=== PATIENT | female | born 1960 | race Caucasian/White ===

== ENCOUNTER 2023-06-06 10:59 | Emergency (ER) | payer BC, SELFPAY ==
[2023-06-06 11:05] VITALS: BP 133/84; PULSE 68; RESP 16; TEMP 36.6; O2SAT 99; BMI 56.8
--- NOTE | 2023-06-06 11:25 | CT_ITS ---
[address] [address] Patient Name: YAJAIRA CONTEH MRN: [id number] date: 1960 Sex: F Assigned Patient Location: ER Current Patient Location: ER Accession/Order Number: [id number] Exam Date: 06/06/2023 12:24 Report Date: 06/06/2023 12:51 At the request of: MANUEL GOODSON Procedure: CT abdomen pelvis w con EXAMINATION: CT abdomen pelvis w con HISTORY: left lower abdominal pain, obstipation COMPARISON: No relevant comparison available. TECHNIQUE: CT images were created with IV contrast. Axial, Coronal, and Sagittal images. Dose reduction techniques were achieved by using automated exposure control and/or adjustment of mA and/or kV according to patient size and/or use of iterative reconstruction technique. FINDINGS: LUNG BASES: No visible pulmonary or pleural disease. LIVER: Diffuse hypoattenuation consistent with hepatic steatosis BILIARY: No visible dilatation or calcification. PANCREAS: No lesion, fluid collection, ductal dilatation, or atrophy. SPLEEN: No enlargement or focal lesion. ADRENALS: No mass or enlargement. KIDNEYS: No mass, obstruction, or calcification. BOWEL/MESENTERY: Moderate concentric wall thickening of the mid sigmoid colon measuring up to 1.2 cm. Underlying diverticulosis. Stranding of adjacent mesenteric fat with a mixed soft tissue and fluid collection measuring 2.4 x 1.5 cm axial image 103. Nonobstructive bowel gas pattern. AORTA/VASCULAR: No aortic aneurysm. Mild atherosclerosis RETROPERITONEUM: No mass or adenopathy. LYMPH NODES: No adenopathy. URINARY BLADDER: No visible focal wall thickening, lesion, or calculus. PELVIC ORGANS: Recommend. Small amount of free pelvic fluid ABDOMINAL WALL: No mass or hernia. BONES: No bony lesion or fracture. OTHER: 1.3 cm area of fluid attenuation adjacent to the left aorta axial image 33, nonspecific IMPRESSION: Sigmoid colon diverticulitis with suspected early abscess formation measuring 2.4 x 1.5 cm Electronically authenticated by: GIOVANNI SHELDON Date: 06/06/2023 12:51
[2023-06-06 11:57] LABS: Basophils Absolute Auto 0.1 10^3/uL (0.0-0.1); Basophils Percent Auto 0.4 % (0.2-2.0); Eosinophils Absolute Auto 0.1 10^3/uL (0.0-0.7); Eosinophils Percent Auto 0.9 % (0.9-7.0); Hematocrit 39.7 % (36.0-48.0); Hemoglobin 12.8 g/dL (12.0-16.0); Immature Granulocytes Abs Auto 0.03 10^3/uL (0.00-0.03); Immature Granulocytes Pct Auto 0.3 % (0.0-0.5); Lymphocytes Absolute Auto 1.7 10^3/uL (1.2-3.8); Lymphocytes Percent Auto 14.6 % (20.5-60.0); Mean Corpuscular HGB Conc 32.2 g/dL (29.9-35.2); Mean Corpuscular Hemoglobin 31.8 pg (26.7-34.0); Mean Corpuscular Volume 98.8 fL (81.0-99.0); Monocytes Absolute Auto 1.1 10^3/uL (0.3-0.8); Monocytes Percent Auto 9.1 % (1.7-12.0); Neutrophils Absolute Auto 8.6 10^3/uL (1.4-6.5); Neutrophils Percent Auto 74.7 % (43.0-75.0); Platelet Count 188 10^3/uL (150-450); Red Blood Count 4.02 10^6/uL (4.20-5.40); Red Cell Distribution Width 12.2 % (11.0-15.0); White Blood Count 11.5 10^3/uL (4.0-11.0)
[2023-06-06] MEDS: 0.9 % SODIUM CHLORIDE 1,000 ML 999 ML IV (12:00)
[2023-06-06] MEDS: ONDANSETRON PF 4 MG/2 ML VIAL IV (12:01)
[2023-06-06] MEDS: HYOSCYAMINE SULFATE 0.125 MG TAB.SUBL SL (12:01)
--- NOTE | 2023-06-06 12:12 | ED_ITS ---
HPI - Abdominal Pain General Chief Complaint: Abdominal Pain Stated Complaint: DIVERTICULITIS FLARE UP Time Seen by Provider: 06/06/23 11:11 Source: patient Mode of arrival: walk-in Limitations: no limitations History of Present Illness HPI narrative: patient concerned that she is experiencing diverticulitis. Pain across the lower abdomen and left abdomen that began yesterday. She is having difficulty passing more than a small amount of stool - she does not want to push to go because of the pain. No fever or chills. No vomiting or diarrhea. Pain is non-radiating. no urinary symptoms. Related Data Home Medications Medication Instructions Recorded Confirmed Saccharomyces boulardii 250 mg 250 mg PO DAILY 06/06/23 06/06/23 capsule (Daily Probiotic (S. boulardii)) ascorbate calcium (vitamin C) 500 500 mg PO DAILY 06/06/23 06/06/23 mg tablet calcium phosphate,dibasic 77 tab PO 06/06/23 mg-vitamin D3 400 unit tablet valacyclovir 500 mg tablet mg 06/06/23 Previous Rx's Medication Instructions Recorded ciprofloxacin HCl 500 mg tablet 500 mg PO BID #14 tabs 06/06/23 (Cipro) hyoscyamine sulfate 0.125 mg 0.125 mg PO Q6H PRN abdominal pain 06/06/23 sublingual tablet (Levsin/SL) #20 tabs metronidazole 500 mg tablet 500 mg PO Q8H 7 days #21 tabs 06/06/23 ondansetron 4 mg disintegrating 4 mg PO Q6H PRN nausea and 06/06/23 tablet vomiting #20 tabs Allergies Allergy/AdvReac Type Severity Reaction Status Date / Time Penicillins AdvReac Intermediate Verified 06/06/23 11:09 Sulfa (Sulfonamide AdvReac Intermediate Verified 06/06/23 11:09 Antibiotics) PFSH PFS Social History Smoking status: Former smoker Exam Narrative Exam Narrative: Nurses notes and vital signs reviewed and patient is not hypoxic. afebrile General: Well-appearing and in no apparent distress. Skin: Warm, dry, no pallor noted. No rash to flank or abdomen. Head: Normocephalic, atraumatic. Eye: Pupils are equal, round and EOMI. No scleral icterus. Ears, Nose, Mouth, and Throat: Oral mucosa is moist Cardiovascular: Regular Rate and Rhythm without murmur, gallop or rub. Respiratory: No accessory muscle use or respiratory distress. Lungs are clear to auscultation, no wheezing, rales or rhonchi Back: No CVA tenderness Musculoskeletal: normal ROM, no lower extremity edema/swelling GI: Abdomen is soft, non-distended. Normal bowel sounds. Diffusely tender along LLQ, suprapubic and LUQ areas on palpation. No rebound, guarding, or rigidity noted. Neurological: A&O x4. No cranial nerve dysfunction observed. No truncal ataxia. Moves all extremities. Sensation intact. Psychiatric: Cooperative and interactive. Normal mood and affect. Constitutional Vital Signs - 24 hr 06/06/23 11:05 Temperature 97.9 F Pulse Rate [Monitor] 68 Respiratory Rate 16 Blood Pressure [Left Arm] 133/84 H Pulse Oximetry 99 Oxygen Delivery Method Room Air Course Vital Signs Vital signs: Vital Signs Temperature 97.9 F 06/06/23 11:05 Pulse Rate 68 06/06/23 11:05 Respiratory Rate 16 06/06/23 11:05 Blood Pressure 133/84 H 06/06/23 11:05 Pulse Oximetry 99 06/06/23 11:05 Oxygen Delivery Method Room Air 06/06/23 11:05 Temperature 97.9 F 06/06/23 11:05 Pulse Rate 68 06/06/23 11:05 Respiratory Rate 16 06/06/23 11:05 Blood Pressure 133/84 H 06/06/23 11:05 Pulse Oximetry 99 06/06/23 11:05 Oxygen Delivery Method Room Air 06/06/23 11:05 MDM - Abdominal Pain MDM Narrative Medical decision making narrative: peripheral IV established and blood drawn and sent for testing. Patient was ordered to receive normal saline IV fluid, IV Zofran and oral sulfa Levsin. CT scanning of the abdomen pelvis was obtained. the radiologist identified sigmoid colonic diverticulitis with suspected early abscess formation measuring 2.4 x 1.5 cm. WBC slightly elevated at 11.5k. CMP was unremarkable. Urinalysis did not identify acute urinary tract infection. Call placed to the on-call general surgeon. Dr. Bender and I discussed this case including the CT report. He recommended that she receive Cipro and Flagyl and he will see her in the office next week for follow up. ED return if she worsens. She will also get zofran and Levsin Lab Data Attestation: I reviewed the patient's lab results. Labs: Lab Results 06/06/23 06/06/23 Range/Units 11:44 12:40 WBC 11.5 H (4.0-11.0) 10^3/uL RBC 4.02 L (4.20-5.40) 10^6/uL Hgb 12.8 (12.0-16.0) g/dL Hct 39.7 (36.0-48.0) % MCV 98.8 (81.0-99.0) fL MCH 31.8 (26.7-34.0) pg MCHC 32.2 (29.9-35.2) g/dL RDW 12.2 (11.0-15.0) % Plt Count 188 (150-450) 10^3/uL MPV 12.0 (9.5-13.5) fL Neut % (Auto) 74.7 (43.0-75.0) % Lymph % (Auto) 14.6 L (20.5-60.0) % [place] % (Auto) 9.1 (1.7-12.0) % Eos % (Auto) 0.9 (0.9-7.0) % Baso % (Auto) 0.4 (0.2-2.0) % Neut # (Auto) 8.6 H (1.4-6.5) 10^3/uL Lymph # (Auto) 1.7 (1.2-3.8) 10^3/uL [place] # (Auto) 1.1 H (0.3-0.8) 10^3/uL Eos # (Auto) 0.1 (0.0-0.7) 10^3/uL Baso # (Auto) 0.1 (0.0-0.1) 10^3/uL Abs Immat Gran (auto) 0.03 (0.00-0.03) 10^3/uL Imm/Tot Granulo (auto) 0.3 (0.0-0.5) % Sodium 141 (136-145) mmol/L Potassium 3.8 (3.5-5.1) mmol/L Chloride 107 (98-107) mmol/L Carbon Dioxide 27.0 (21.0-32.0) mmol/L Anion Gap 10.8 BUN 8.0 (7.0-18.0) mg/dL Creatinine 0.74 (0.55-1.02) mg/dL Est GFR ( Amer) >60 (>=60) Est GFR (Non-Af Amer) >60 (>=60) BUN/Creatinine Ratio 10.8 Glucose 97 (74-106) mg/dL Calcium 8.9 (8.5-10.1) mg/dL Total Bilirubin 0.6 (0.2-1.0) mg/dL AST 14 L (15-37) U/L ALT <6 L (14-59) U/L Alkaline Phosphatase 89 (46-116) U/L Total Protein 6.7 (6.4-8.2) g/dL Albumin 3.5 (3.4-5.0) g/dL Globulin 3.2 g/dL Albumin/Globulin Ratio 1.1 Urine Color Lt. yellow (YELLOW) Urine Clarity Clear (CLEAR) Urine pH 6.5 (5.0-9.0) Ur Specific [place] <=1.005 A (1.005-1.025) Urine Protein Negative (NEG/TRACE) mg/dL Urine Glucose (UA) Negative (NEGATIVE) mg/dL Urine Ketones Negative (NEGATIVE) mg/dL Urine Occult Blood Negative (NEGATIVE) Urine Nitrite Negative (NEGATIVE) Urine Bilirubin Negative (NEGATIVE) Urine Urobilinogen 0.2 (0.2-1.0) EU/dL Ur Leukocyte Esterase Small A (NEGATIVE) Urine RBC None seen (0-2) #/HPF Urine WBC 0-2 A (NONE SEEN) #/HPF Ur Squamous Epith Cells Rare (NONE/RARE) #/LPF Urine Crystals None seen (None Seen) #/HPF Urine Bacteria None seen (NONE SEEN) #/HPF Urine Casts None seen (NONE SEEN) #/LPF Urine Mucus None seen (NONE SEEN) Ur Culture Indicated? No Imaging Data ct abd/pelvis: Radiologist's impression: Patient Name: YAJAIRA CONTEH MRN: [id number] date: 1960 Sex: F Assigned Patient Location: ER Current Patient Location: ER Accession/Order Number: [id number] Exam Date: 06/06/2023 12:24 Report Date: 06/06/2023 12:51 At the request of: MANUEL GOODSON Procedure: CT abdomen pelvis w con EXAMINATION: CT abdomen pelvis w con HISTORY: left lower abdominal pain, obstipation COMPARISON: No relevant comparison available. TECHNIQUE: CT images were created with IV contrast. Axial, Coronal, and Sagittal images. Dose reduction techniques were achieved by using automated exposure control and/or adjustment of mA and/or kV according to patient size and/or use of iterative reconstruction technique. FINDINGS: LUNG BASES: No visible pulmonary or pleural disease. LIVER: Diffuse hypoattenuation consistent with hepatic steatosis BILIARY: No visible dilatation or calcification. PANCREAS: No lesion, fluid collection, ductal dilatation, or atrophy. SPLEEN: No enlargement or focal lesion. ADRENALS: No mass or enlargement. KIDNEYS: No mass, obstruction, or calcification. BOWEL/MESENTERY: Moderate concentric wall thickening of the mid sigmoid colon measuring up to 1.2 cm. Underlying diverticulosis. Stranding of adjacent mesenteric fat with a mixed soft tissue and fluid collection measuring 2.4 x 1.5 cm axial image 103. Nonobstructive bowel gas pattern. AORTA/VASCULAR: No aortic aneurysm. Mild atherosclerosis RETROPERITONEUM: No mass or adenopathy. LYMPH NODES: No adenopathy. URINARY BLADDER: No visible focal wall thickening, lesion, or calculus. PELVIC ORGANS: Recommend. Small amount of free pelvic fluid ABDOMINAL WALL: No mass or hernia. BONES: No bony lesion or fracture. OTHER: 1.3 cm area of fluid attenuation adjacent to the left aorta axial image 33, nonspecific IMPRESSION: Sigmoid colon diverticulitis with suspected early abscess formation measuring 2.4 x 1.5 cm Electronically authenticated by: GIOVANNI SHELDON Date: 06/06/2023 12:51 Discharge Plan Discharge Chief Complaint: Abdominal Pain Clinical Impression: Diverticulitis Patient Disposition: Home, Self-Care Time of Disposition Decision: 13:24 Mode of Transportation: Private Vehicle Prescriptions / Home Meds: New ciprofloxacin HCl [Cipro] 500 mg tablet 500 mg PO BID Qty: 14 0RF metronidazole 500 mg tablet 500 mg PO Q8H 7 Days Qty: 21 0RF ondansetron 4 mg tablet,disintegrating 4 mg PO Q6H PRN (Reason: nausea and vomiting) Qty: 20 0RF hyoscyamine sulfate [Levsin/SL] 0.125 mg tablet, sublingual 0.125 mg PO Q6H PRN (Reason: abdominal pain) Qty: 20 0RF No Action valacyclovir 500 mg tablet calcium phos,dibas-vitamin D3 77-400 mg-unit tablet PO ascorbate calcium (vitamin C) 500 mg tablet 500 mg PO DAILY Saccharomyces boulardii [Daily Probiotic (S. boulardii)] 250 mg capsule 250 mg PO DAILY Instructions: Diverticulitis (ED) Additional Instructions: FOLLOW UP WITH GENERAL SURGEON DR BENDER [phone] Stand Alone Forms: Portal Instructions Referrals: MIGEL VALLADARES [Primary Care Provider] - 1 week Discharge Date/Time: 06/06/23 14:03
[2023-06-06 12:15] LABS: Alanine Aminotransferase <6 U/L (14-59); Albumin Globulin Ratio 1.1; Albumin Level 3.5 g/dL (3.4-5.0); Alkaline Phosphatase 89 U/L (46-116); Anion Gap 10.8; Aspartate Amino Transferase 14 U/L (15-37); BUN Creatinine Ratio 10.8; Bilirubin Total 0.6 mg/dL (0.2-1.0); Calcium 8.9 mg/dL (8.5-10.1); Chloride 107 mmol/L (98-107); Estimated GFR (African America >60 (>=60); Estimated GFR (Non-African Ame >60 (>=60); Globulin 3.2 g/dL; Glucose 97 mg/dL (74-106); Potassium 3.8 mmol/L (3.5-5.1); Sodium 141 mmol/L (136-145); Total Protein 6.7 g/dL (6.4-8.2)
[2023-06-06 12:47] LABS: Bilirubin Urine NEGATIVE (NEGATIVE); Blood Urine NEGATIVE (NEGATIVE); Clarity Urine CLEAR (CLEAR); Color Urine LT. YELLOW (YELLOW); Glucose Urine UA NEGATIVE (NEGATIVE); Ketones Urine NEGATIVE (NEGATIVE); Leukocyte Esterase Urine SMALL (NEGATIVE); Nitrite Urine NEGATIVE (NEGATIVE); Protein Urine NEGATIVE (NEG/TRACE); Specific Gravity Urine <=1.005 (1.005-1.025); Urobilinogen Urine 0.2 EU/dL (0.2-1.0); pH Urine 6.5 (5.0-9.0)
[2023-06-06 12:48] LABS: Urine Microscopic Indicated YES
[2023-06-06 12:53] LABS: Bacteria Urine NONE SEEN #/HPF (NONE SEEN); Cast Seen? NONE SEEN #/LPF (NONE SEEN); Crystals Seen? None Seen #/HPF (None Seen); Mucus Urine NONE SEEN (NONE SEEN); RBC Urine NONE SEEN #/HPF (0-2); Squamous Epithelial Cell Urine RARE #/LPF (NONE/RARE); WBC Urine 0-2 #/HPF (NONE SEEN)
[2023-06-06 12:54] LABS: Urine Culture Indicated NO
== END 2023-06-06 14:03 | disposition home or self-care (01) ==
PROVIDERS: Emergency Provider Emergency Medicine; PCP Family Medicine
DX: K57.32 Diverticulitis of large intestine without perforation or abscess without bleeding (principal); Z79.899 Other long term (current) drug therapy; Z87.891 Personal history of nicotine dependence
CPT/HCPCS: 36415; 74177; 80053; 81003; 81015; 85025; 96374; 99285; Q9967